=== PATIENT | female | born 1980 | race Caucasian/White ===

== ENCOUNTER → 2016-07-20 | Outpatient (CLI) | payer MEDICAID | LOC: CIMAGING 12:42 | PROVIDERS: ATTEND Family Medicine | DX: Z12.39 Encounter for other screening for malignant neoplasm of breast (principal); N60.01 Solitary cyst of right breast | CPT/HCPCS: 76641-PO ==

== ENCOUNTER → 2016-07-30 | Outpatient (CLI) | payer MEDICAID | LOC: FIMAGING 13:36 | PROVIDERS: ATTEND Family Medicine | PROC: 0HBT3ZX Excision of Right Breast, Percutaneous Approach, Diagnostic (ICD-10-PCS; principal; 2016-07-30) | DX: N60.01 Solitary cyst of right breast (principal) ==

== ENCOUNTER 2017-11-29 11:24 | Emergency (ER) | payer MEDICAID, OTHER ==
[2017-11-29] MEDS ORDERED: DIAZEPAM 5 MG TAB PO ONE (11:51)
[2017-11-29] MEDS ORDERED: ACETAMINOPHEN 500 MG TAB PO ONE (11:52)
--- NOTE | 2017-11-29 12:24 | EDPHY ---
H & P Time Seen by Provider: 11/29/17 11:35 HPI/ROS: This patient presents with upper thoracic back pain. 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 She was uncertain if the pop originated from her thoracic spine, shoulder girdle, glenohumeral joint or other site but had mild discomfort in the posterior upper thoracic back region at that time that did not prevent further workup. However she awakened day of presentation with 7/10 intensity pain in the left upper thoracic back region. She also noted some crepitance in her left shoulder that she had noticed before since the onset of the pain. However, she reports that despite the crepitance in the shoulder most of her pain is localized to the left upper back. ROS: Constitutional: No fevers HEENT: No complaints new line pulmonary: No shortness of breath or pleuritic pain. Cardiovascular: No lightheadedness. No upper or lower extremity swelling. Integumentary: No skin rash Neuro: No focal numbness tingling weakness. No bowel or bladder incontinence. 5 point ROS is otherwise negative. Smoking Status: Current every day smoker Physical Exam: Physical Exam Vital signs are normal. General: No acute distress HEENT: Atraumatic. Eyes: Pupils equal and react to light. Extraocular motions are intact. Neck: No midline tenderness. She retains a good range of motion but has increased pain in the left upper back and pain radiates down her left arm when she flexes toward the affected side. Lungs: Clear to auscultation bilaterally. No respiratory distress. Cardiac: Regular rate and rhythm with no murmur gallop or rub. No upper lower extremity edema. Skin: No rash or pallor. Extremities: Left shoulder patient has mild crepitance the left shoulder with motion but no pain with complete range of motion. She maintains good strength versus resistance in AB duction and forward flexion. Neuro: Alert and oriented. She maintains 2+ symmetric biceps, triceps, brachioradialis and patellar DTRs bilaterally. She maintains 5/5 strength in upper and lower extremities. no sensorimotor deficits are appreciated. Initial differential diagnosis: Cervical radiculopathy, rhomboid muscle strain , thoracic back muscle strain, disc herniation, pathologic fracture, bony abnormality, calcific tendinitis Constitutional: Initial Vital Signs Temperature (C) 36.7 C 11/29/17 11:37 Heart Rate 90 11/29/17 11:37 Respiratory Rate 16 11/29/17 11:37 Blood Pressure 139/104 H 11/29/17 11:37 O2 Sat (%) 99 11/29/17 11:37 O2 Delivery Mode Room Air Allergies/Adverse Reactions: Penicillins Allergy (Mild, Verified 11/29/17 11:36) Rash Home Medications: Medication Instructions Recorded LORazepam [Ativan] 0.5 mg PO BID PRN #12 tablet 01/08/14 Levothyroxine 01/13/15 Ibuprofen [Motrin (*)] 600 mg PO Q6 PRN #30 tab 11/29/17 Lidocaine [Lidoderm] 1 each TP DAILY #15 adh..patch 11/29/17 Methocarbamol [Robaxin 750 mg (*)] 750 - 1,500 mg PO QID PRN #30 tab 11/29/17 MDM/Departure - MDM Diagnostics: Cervical spine x-rays: Normal by my interpretation Shoulder x-rays left shoulder: Normal by my interpretation Imaging: I viewed and interpreted images myself Medications Given: Discontinued Medications Acetaminophen (Tylenol) 1,000 mg PO EDNOW ONE Stop: 11/29/17 11:53 Last Admin: 11/29/17 12:24 Dose: 1,000 mg Diazepam (Valium) 5 mg PO EDNOW ONE Stop: 11/29/17 11:52 Last Admin: 11/29/17 12:25 Dose: 5 mg ED Course/Re-evaluation: Discussion: Patient with thoracic back pain is attributable to muscle strain with no concerning findings on plain film radiographs cervical spine and shoulder. While she has some radicular symptoms in the left upper extremity she has no neuro deficits that suggest significant nerve impingement. I counseled regarding this. She is treated with ibuprofen Tylenol partial relief will plan to add methocarbamol and Lidoderm patches to this regimen as an outpatient. Recommended limited use of the left upper extremity for the next 2 days she will follow up with work comp doc. - Depart Disposition: Home, Routine, Self-Care Clinical Impression: Neck pain Acute thoracic back pain Qualifiers: Back pain laterality: left Qualified Code(s): M54.6 - Pain in thoracic spine Condition: Good Instructions: Thoracic Back Strain (ED) Additional Instructions: Diagnosis: Thoracic back strain 2. Neck pain Plan: Continue ibuprofen 600 mg per 6 hr as needed for pain Tylenol in addition as needed Methocarbamol muscle relaxant in addition as needed Lidoderm patches in addition if needed for pain control. Limit lifting with the left arm to no more than 5 lb until symptoms improve No work for the next 2 days. Recheck with your work comp clinic on Saturday Daily stretches as described. Prescriptions: Ibuprofen [Motrin (*)] 600 mg PO Q6 PRN #30 tab PRN Reason: Pain Lidocaine [Lidoderm] 1 each TP DAILY #15 adh..patch Methocarbamol [Robaxin 750 mg (*)] 750 - 1,500 mg PO QID PRN #30 tab PRN Reason: Muscle Spasms Referrals: Chato Du MD [Primary Care Provider] - As per Instructions
[2017-11-29 12:41] VITALS: BP 114/80
== END 2017-11-29 12:38 | disposition home or self-care (01) ==
LOC: CED 11:24
DX: S29.9XXA Unspecified injury of thorax, initial encounter (principal); S19.9XXA Unspecified injury of neck, initial encounter; F17.200 Nicotine dependence, unspecified, uncomplicated; X58.XXXA Exposure to other specified factors, initial encounter
CPT/HCPCS: 72040-PO; 73030-PO